=== PATIENT | male | born 1965 | race Caucasian/White ===

== ENCOUNTER 2024-05-30 12:33 | Inpatient (IN) | payer OTHER ==
[2024-05-30 13:19] VITALS: BMI 25.4
[2024-05-30] MEDS ORDERED: POLYETHYLENE GLYCOL (HEALTHYLAX) 3350 17 GM PACKET PO PRN (15:04)
[2024-05-30] MEDS ORDERED: BENZONATATE 200 MG CAPSULE PO PRN (15:04)
[2024-05-30] MEDS ORDERED: MAG HYDROX/AL HYDROX/SIMETH 30 ML UNIT-DOSE CUP PO PRN (15:04)
[2024-05-30] MEDS ORDERED: NALOXONE (NARCAN) HCL 4 MG/0.1 ML SPRAY NS PRN (15:04)
[2024-05-30] MEDS ORDERED: NALOXONE (NYS OPIOID OVERDOSE PROGRAM) 4 MG/0.1 ML SPRAY NS PRN (15:04)
[2024-05-30] MEDS ORDERED: ACETAMINOPHEN 325 MG TABLET (FP) PO PRN (15:04)
[2024-05-30] MEDS ORDERED: guaiFENesin 600 MG TABLET.ER (FP) PO PRN (15:04)
[2024-05-30] MEDS ORDERED: IBUPROFEN 600 MG TABLET (FP) PO PRN (15:04)
[2024-05-30] MEDS ORDERED: IBUPROFEN 400 MG TABLET (FP) PO PRN (15:04)
[2024-05-30] MEDS ORDERED: BENZOCAINE/MENTHOL (CHLORASEPTIC ) LOZENGE MM PRN (15:04)
[2024-05-30] MEDS ORDERED: LOPERAMIDE HCL 2 MG CAPSULE PO PRN (15:04)
[2024-05-30] MEDS ORDERED: DICYCLOMINE HCL 10 MG CAPSULE PO PRN (15:04)
[2024-05-30] MEDS ORDERED: chlordiazePOXIDE HCL 25 MG CAPSULE PO PRN (15:04)
[2024-05-30] MEDS ORDERED: MAGNESIUM HYDROX 2400MG/30ML ORAL SUSPENSION 30 ML CUP PO PRN (15:04)
[2024-05-30] MEDS ORDERED: BISMUTH SUBSALICYLATE 524 MG/30 ML PO PRN (15:04)
[2024-05-30] MEDS ORDERED: ONDANSETRON *ODT* 4 MG TABLET SL PRN (15:04)
[2024-05-30] MEDS ORDERED: NICOTINE POLACRILEX 2 MG GUM BUC PRN (15:08)
[2024-05-30] MEDS ORDERED: PRENATAL VITAMINS W/ FOLIC ACID TABLET (FP) PO ONE (15:41)
[2024-05-30] MEDS ORDERED: LISINOPRIL 10 MG TABLET ONE (15:41)
[2024-05-30] MEDS ORDERED: chlordiazePOXIDE HCL 25 MG CAPSULE ONE (15:41)
[2024-05-30] MEDS: LISINOPRIL 10 MG TABLET PO ONE (15:46)
[2024-05-30] MEDS: chlordiazePOXIDE HCL 25 MG CAPSULE PO ONE (15:46)
[2024-05-30] MEDS: PRENATAL VITAMINS W/ FOLIC ACID TABLET (FP) PO SCH (16:22)
[2024-05-30] MEDS: chlordiazePOXIDE HCL 25 MG CAPSULE PO SCH (21:00)
[2024-05-30] MEDS: THIAMINE 100 MG TABLET PO SCH (22:20)
[2024-05-30] MEDS: buPROPion HCL 75 MG TABLET PO SCH (22:20)
[2024-05-30] MEDS: MELATONIN 5 MG TABLETS PO SCH (22:21)
[2024-05-31] MEDS: PANTOPRAZOLE 40 MG TABLET PO SCH (09:39)
[2024-05-31] MEDS: ESCITALOPRAM OXALATE 10 MG TABLET PO SCH (12:30)
[2024-05-31] MEDS: ENALAPRIL MALEATE 10 MG TABLET PO SCH (17:30)
[2024-05-31 17:37] LABS: HEMATOCRIT 41.3 % (35.4-49); HEMOGLOBIN 14.2 GM/dL (11.7-16.9); MCH 32.3 pg (25.7-33.7); MCHC 34.3 g/dl (32.0-35.9); MEAN CELL VOLUME 94.2 fl (80-96); MEAN PLT VOLUME 8.2 fl (7.5-11.1); PLATELET COUNT 252 10^3/uL (134-434); RBC 4.39 M/mm3 (4.00-5.60); RDW 13.9 % (11.9-15.9); WHITE BLOOD COUNT 6.5 K/mm3 (4.0-10.0)
[2024-06-01] MEDS: chlordiazePOXIDE HCL 25 MG CAPSULE PO SCH (05:46)
[2024-06-01 10:07] LABS: CHLORIDE 110 mmol/L (98-107); POTASSIUM 4.3 mmol/L (3.5-5.1); SODIUM 143 mmol/L (136-145)
[2024-06-01 10:08] LABS: CALCIUM 9.3 mg/dL (8.5-10.1)
[2024-06-01 10:09] LABS: ALBUMIN 3.7 g/dl (3.4-5.0); ANION GAP 7 mmol/L (4-13); BLOOD UREA NITROGEN 14.4 mg/dL (7-18); CO2 26 mmol/L (21-32); GLUCOSE,RANDOM 127 mg/dL (74-106)
[2024-06-01 10:12] LABS: CREATININE 0.9 mg/dL (0.55-1.3); SGOT/AST 22 U/L (15-37); SGPT/ALT 35 U/L (13-61)
[2024-06-01 10:14] LABS: BILIRUBIN,TOTAL 0.2 mg/dL (0.2-1); TOT PROT 6.7 g/dl (6.4-8.2)
[2024-06-01 10:15] LABS: ALK PHOS 94 U/L (45-117)
[2024-06-01] MEDS: METHOCARBAMOL 500 MG TABLET PO PRN (22:10)
[2024-06-02] MEDS ORDERED: chlordiazePOXIDE HCL 10 MG CAPSULE PO PRN
[2024-06-02] MEDS: chlordiazePOXIDE HCL 10 MG CAPSULE PO SCH (05:44)
[2024-06-02] MEDS: hydrOXYzine PAMOATE 25 MG CAPSULE (FP) PO PRN (22:22)
[2024-06-02] MEDS: ENALAPRIL MALEATE 10 MG TABLET PO SCH (22:22)
[2024-06-03] MEDS: chlordiazePOXIDE HCL 10 MG CAPSULE PO SCH (05:53)
[2024-06-04] MEDS: chlordiazePOXIDE HCL 10 MG CAPSULE PO ONE (05:29)
[2024-06-04 17:53] VITALS: BP 120/75; PULSE 61; RESP 18; TEMP 98.4
== END 2024-06-04 18:37 | disposition other institution (70) | DRG 897 ==
LOC: YASAS 12:33 → Y6N 16:21
PROVIDERS: ADMIT Allergy & Immunology; ATTEND Surgery
PROC: HZ2ZZZZ Detoxification Services for Substance Abuse Treatment (ICD-10-PCS; principal; 2024-05-30)
DX: F10.230 Alcohol dependence with withdrawal, uncomplicated (principal); F14.20 Cocaine dependence, uncomplicated; F19.282 Other psychoactive substance dependence with psychoactive substance-induced sleep disorder; F17.210 Nicotine dependence, cigarettes, uncomplicated; F32.A Depression, unspecified; F43.10 Post-traumatic stress disorder, unspecified; I10 Essential (primary) hypertension; K21.9 Gastro-esophageal reflux disease without esophagitis; Z62.810 Personal history of physical and sexual abuse in childhood; Z63.8 Other specified problems related to primary support group; Z86.19 Personal history of other infectious and parasitic diseases
CPT/HCPCS: 36415; 80053; 80305; 80307; 82550; 84484; 85027; 86593; 86780; 93005; 93010

== ENCOUNTER 2024-06-04 19:05 | Inpatient (IN) | payer OTHER ==
[~2024-06-04 19:05] MED LIST: BENZOCAINE/MENTHOL (CHLORASEPTIC ) LOZENGE MM PRN; BENZONATATE 200 MG CAPSULE PO PRN; IBUPROFEN 400 MG TABLET (FP) PO PRN; LOPERAMIDE HCL 2 MG CAPSULE PO PRN; MAGNESIUM HYDROX 2400MG/30ML ORAL SUSPENSION 30 ML CUP PO PRN; NALOXONE (NARCAN) HCL 4 MG/0.1 ML SPRAY NS PRN; NALOXONE (NYS OPIOID OVERDOSE PROGRAM) 4 MG/0.1 ML SPRAY NS PRN; NICOTINE POLACRILEX 2 MG GUM BUC PRN; NICOTINE POLACRILEX 2 MG LOZENGE BC PRN; POLYETHYLENE GLYCOL (HEALTHYLAX) 3350 17 GM PACKET PO PRN; guaiFENesin 600 MG TABLET.ER (FP) PO PRN
[2024-06-04] MEDS: buPROPion HCL 75 MG TABLET PO SCH (19:30)
[2024-06-04] MEDS: MELATONIN 5 MG TABLETS PO SCH (21:26)
[2024-06-04] MEDS: THIAMINE 100 MG TABLET PO SCH (21:26)
[2024-06-04] MEDS: ENALAPRIL MALEATE 10 MG TABLET PO SCH (21:54)
[2024-06-05] MEDS ORDERED: TUBERCULIN PPD 5 TU/0.1ML VIAL ID ONE (09:00)
[2024-06-05] MEDS ORDERED: ESCITALOPRAM OXALATE 10 MG TABLET ONE (10:17)
[2024-06-05] MEDS: PANTOPRAZOLE 40 MG TABLET PO SCH (10:18)
[2024-06-05] MEDS: ESCITALOPRAM OXALATE 20 MG TABLET PO SCH (10:19)
[2024-06-05] MEDS: PRENATAL VITAMINS W/ FOLIC ACID TABLET (FP) PO SCH (10:19)
[2024-06-05] MEDS: TUBERCULIN PPD 5 TU/0.1ML VIAL ID ONE (12:33)
[2024-06-05] MEDS: FLU VACCINE (FLULAVAL) PF 45 MCG/0.5 ML SYRINGE 2024-2025 IM ONE (12:39)
[2024-06-05] MEDS: BACITRACIN ZINC 15 GM TUBE TOPICAL OINTMENT TP SCH (16:44)
[2024-06-05] MEDS: MELATONIN 5 MG TABLETS PO SCH (21:21)
[2024-06-06] MEDS ORDERED: ESCITALOPRAM OXALATE 10 MG TABLET ONE (09:11)
[2024-06-06] MEDS: ENALAPRIL MALEATE 10 MG TABLET PO SCH (10:15)
[2024-06-06] MEDS: ESCITALOPRAM OXALATE 20 MG TABLET PO SCH (10:19)
[2024-06-06] MEDS: hydrOXYzine PAMOATE 25 MG CAPSULE (FP) PO PRN (13:11)
[2024-06-06 15:20] LABS: INR 0.96 (0.83-1.09)
[2024-06-07] MEDS ORDERED: ESCITALOPRAM OXALATE 10 MG TABLET ONE (09:36)
[2024-06-07] MEDS: ESCITALOPRAM OXALATE 20 MG TABLET PO SCH (10:16)
[2024-06-08] MEDS ORDERED: ESCITALOPRAM OXALATE 10 MG TABLET ONE (09:15)
[2024-06-09] MEDS ORDERED: ESCITALOPRAM OXALATE 10 MG TABLET ONE (10:08)
[2024-06-11] MEDS ORDERED: ESCITALOPRAM OXALATE 10 MG TABLET ONE (10:34)
[2024-06-11] MEDS: MAGNESIUM OXIDE 400 MG TABLET (FP) PO SCH (11:44)
[2024-06-11] MEDS: CHOLECALCIFEROL (VIT D3) 400 UNIT (10 MCG) TABLET PO SCH (11:44)
[2024-06-11] MEDS: NALTREXONE HCL 50 MG TABLET PO SCH (11:44)
[2024-06-11] MEDS: LACTULOSE 20 GM/30 ML UDC (FOR ORAL USE ONLY) PO SCH (14:00)
[2024-06-11] MEDS: hydrOXYzine PAMOATE 25 MG CAPSULE (FP) PO PRN (16:36)
[2024-06-12] MEDS: NALTREXONE HCL 50 MG TABLET PO SCH (09:58)
[2024-06-12] MEDS: ACETAMINOPHEN 325 MG TABLET (FP) PO PRN (17:43)
[2024-06-14] MEDS ORDERED: ESCITALOPRAM OXALATE 10 MG TABLET ONE (09:22)
[2024-06-14] MEDS: MAG HYDROX/AL HYDROX/SIMETH 30 ML UNIT-DOSE CUP PO PRN (09:58)
[2024-06-14] MEDS: PANTOPRAZOLE 20 MG TABLET PO SCH (14:06)
[2024-06-15] MEDS ORDERED: ESCITALOPRAM OXALATE 10 MG TABLET ONE (09:26)
[2024-06-16] MEDS ORDERED: ESCITALOPRAM OXALATE 10 MG TABLET ONE (09:18)
[2024-06-17] MEDS: NALTREXONE MICROSPHERES (VIVITROL) 380 MG DISP.SYRIN IM ONE (09:05)
[2024-06-17] MEDS: IBUPROFEN 600 MG TABLET (FP) PO PRN (11:32)
[2024-06-18] MEDS ORDERED: ESCITALOPRAM OXALATE 10 MG TABLET ONE (10:15)
[2024-06-19 06:26] VITALS: RESP 17; TEMP 96.7
[2024-06-19] MEDS ORDERED: ESCITALOPRAM OXALATE 10 MG TABLET ONE (09:01)
[2024-06-19 09:17] VITALS: BP 156/102; PULSE 72
== END 2024-06-19 09:08 | disposition home or self-care (01) | DRG 895 ==
LOC: YASAS 19:05 → Y3E 19:08
PROVIDERS: ADMIT Allergy & Immunology; ATTEND Psychiatry & Neurology Pain Medicine
PROC: HZ42ZZZ Group Counseling for Substance Abuse Treatment, Cognitive-Behavioral (ICD-10-PCS; principal; 2024-06-04)
DX: F10.20 Alcohol dependence, uncomplicated (principal); F14.20 Cocaine dependence, uncomplicated; E72.20 Disorder of urea cycle metabolism, unspecified; F17.210 Nicotine dependence, cigarettes, uncomplicated; F10.24 Alcohol dependence with alcohol-induced mood disorder; F43.10 Post-traumatic stress disorder, unspecified; F32.A Depression, unspecified; E83.42 Hypomagnesemia; E55.9 Vitamin D deficiency, unspecified; I10 Essential (primary) hypertension; K21.9 Gastro-esophageal reflux disease without esophagitis
CPT/HCPCS: 36415; 82140; 82652; 82962; 83735; 85610; 90656; G0008; J2315